=== PATIENT | male | born 1975 | race Two or more races ===

== ENCOUNTER 2022-03-21 19:11 | Emergency (ER) | payer BC, OTHER ==
[~2022-03-21] VITALS: Ht 170.2 cm; Wt 83.5 kg
[2022-03-21] MEDS ORDERED: MORPHINE SULFATE INJ 4 MG/ML DISP.SYRIN ONE ×3 (19:36→20:33)
[2022-03-21] MEDS ORDERED: ONDANSETRON HCL/PF 4 MG/2 ML VIAL ONE (19:36)
[2022-03-21] MEDS ORDERED: KETOROLAC TROMETHAMINE 15 MG/ML VIAL ONE ×2 (19:42→21:15)
--- NOTE | 2022-03-21 19:45 | NUR ---
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 AMBULATORY, PLACED IN BED, AAOX4, IN PAIN 12/21. MD AT BED FOR EVAL.
--- NOTE | 2022-03-21 19:46 | NUR ---
URINE SAMPLE SENT TO LAB
--- NOTE | 2022-03-21 19:50 | NUR ---
BLOOD DRAWN AND SENT TO LAB
[2022-03-21] MEDS ORDERED: KETOROLAC TROMETHAMINE INJ 30 MG/ML VIAL IV ONE ×2 (20:00→21:30)
[2022-03-21] MEDS ORDERED: ONDANSETRON HCL/PF 4 MG/2 ML VIAL IVP ONE (20:00)
[2022-03-21] MEDS ORDERED: MORPHINE SULFATE INJ 2 MG/ML DISP.SYRIN IV ONE ×3 (20:00→20:30)
[2022-03-21] MEDS ORDERED: IV NS 0.9% 1,000 ML BAG IV ONE ×2 (20:00→21:00)
[2022-03-21 20:05] LABS: CALCIUM, SERUM 9.2 mg/dL (8.5-10.1); CREATININE 1.2 mg/dL (0.6-1.3); POTASSIUM 3.5 mmol/L (3.5-5.1)
[2022-03-21 20:09] LABS: BILIRUBIN,URINE NEGATIVE (NEGATIVE); COLOR,URINE YELLOW (YELLOW); LEUKOCYTE ESTERASE ,URINE NEGATIVE (NEGATIVE); NITRITE, URINE NEGATIVE (NEGATIVE); PROTEIN,URINE NEGATIVE (NEGATIVE); UGLUCOSE NEGATIVE (NEGATIVE); UROBILINOGEN,URINE 0.2 EU/dL (0.2)
[2022-03-21 20:10] LABS: ALBUMIN 4.2 g/dL (3.4-5.0); BILIRUBIN,DIRECT 0.1 mg/dL (0.0-0.2); BILIRUBIN,TOTAL 0.3 mg/dL (0.2-1.0); TOTAL PROTEIN, SERUM 7.5 g/dL (6.4-8.2)
[2022-03-21 20:16] LABS: BASOPHILS % (AUTO) 0.3 % (0.0-2.0); HEMATOCRIT 46 % (39-51); HEMOGLOBIN 15.7 g/dL (13.5-17.5); LYMPHOCYTES # (AUTO) 3.6 K/uL (0.8-4.8); LYMPHOCYTES % (AUTO) 30.7 % (20.0-44.0); MEAN CORPUSCULAR HGB CONC 34 g/dl (31.0-36.0); MEAN CORPUSCULAR VOLUME 90 fL (80-96); MONOCYTES # (AUTO) 1.1 K/uL (0.1-1.30); MONOCYTES % (AUTO) 8.9 % (2.0-12.0); NEUTROPHILS % (AUTO) 59.1 % (43.0-81.0); PLATELET COUNT (AUTO) 287 K/uL (150-450); RED BLOOD CELL COUNT(AUTO) 5.17 MIL/uL (4.5-6.0); WHITE BLOOD COUNT (AUTO) 11.8 K/uL (4.3-11.0)
[2022-03-21 20:49] LABS: BACTERIA,URINE None seen /HPF (None Seen); RBC,URINE 51-80 /HPF (0-2); SQUAMOUS EPITHELIAL CELL,UR 0-2 /HPF (None Seen); WBC,URINE 0-2 /HPF (0-3)
[2022-03-21] MEDS ORDERED: TAMSULOSIN 0.4 MG CAP.SR.24H PO ONE (21:00)
[2022-03-21] MEDS ORDERED: TAMSULOSIN 0.4 MG CAP.SR.24H ONE (21:10)
[2022-03-21] MEDS ORDERED: HYDROMORPHONE 1 MG/1 ML DISP.SYRIN ONE (21:50)
[2022-03-21] MEDS ORDERED: HYDROMORPHONE MDV 1 MG in IV D5W 50 ML IV PRN (22:00)
[2022-03-21] MEDS ORDERED: TAMS-12 PO (22:19)
[2022-03-21] MEDS ORDERED: ONDA4TAB11 PO (22:19)
[2022-03-21] MEDS ORDERED: HYDR-3980 PO (22:57)
--- NOTE | 2022-03-21 23:20 | NUR ---
IV removed. Catheter intact and site benign. Pressure and 4x4 applied to site. No bleeding noted.Patient discharged to home in stable condition. Written and verbal after care instructions given. Patient verbalizes understanding of instruction.
[2022-03-21 23:27] VITALS: BP 135/85
== END 2022-03-21 23:20 | disposition home or self-care (01) ==
LOC: ER 19:14
DX: N20.1 Calculus of ureter (principal); R10.9 Unspecified abdominal pain; Z87.442 Personal history of urinary calculi; Z88.0 Allergy status to penicillin; Z79.899 Other long term (current) drug therapy
CPT/HCPCS: 99284; 74176; 96365; 96375; 96361; 96376; 85025; 80048; 83690; 80076; 81001; 36415; J1170 ×2; J2270 ×3; J2405; J7060 ×2; J1885 ×2

== ENCOUNTER 2022-03-22 05:27 | Inpatient (IN) | payer BC ==
[~2022-03-22] VITALS: Ht 170.2 cm; Wt 83.5 kg
[~2022-03-22 05:27] MED LIST: HYDR-3980 PO; ONDA4TAB11 PO; TAMS-12 PO
--- NOTE | 2022-03-22 06:10 | NUR ---
TO ER BED 11. BIBS C/O L FLANK PAIN X 1 DAY. PT IS ALERT AND ORIENTED. RR EVEN AND NON LABORED. CONNECTED TO POX AND HEART MONITOR.
[2022-03-22] MEDS ORDERED: KETOROLAC TROMETHAMINE INJ 30 MG/ML VIAL ONE ×3 (06:15→18:28)
[2022-03-22] MEDS ORDERED: MORPHINE SULFATE INJ 4 MG/ML DISP.SYRIN ONE ×2 (06:15→07:30)
[2022-03-22] MEDS ORDERED: ONDANSETRON HCL/PF 4 MG/2 ML VIAL ONE (06:15)
[2022-03-22] MEDS ORDERED: ONDANSETRON HCL/PF - ER 4 MG/2 ML VIAL IV ONE (06:30)
[2022-03-22] MEDS ORDERED: MORPHINE SULFATE INJ 2 MG/ML DISP.SYRIN IV ONE ×2 (06:30→07:30)
[2022-03-22] MEDS ORDERED: IV NS 0.9% 1,000 ML IV ONE ×2 (06:30→08:00)
[2022-03-22] MEDS ORDERED: KETOROLAC TROMETHAMINE INJ 30 MG/ML VIAL IV ONE ×2 (06:30→07:30)
--- NOTE | 2022-03-22 06:31 | NUR ---
IV LINE ESTABLISHED, RAC20G
--- NOTE | 2022-03-22 08:09 | NUR ---
MORPHINE, TORADOL, AND NS IV GIVEN INDICATED, [place]. IVF INFUSING. PT NOT IN ACUTE DISTRESS, ALERT AND VERBALLY RESPONSIVE.
--- NOTE | 2022-03-22 08:35 | NUR ---
FACUNDO [phone] PICKED UP KEYS FROM PT
--- NOTE | 2022-03-22 09:50 | NUR ---
PT STILL COMPLAINING OF ABD/KIDNEY PAIN; PA AT BEDSIDE, AWARE.
--- NOTE | 2022-03-22 10:10 | NUR ---
COVID SWAB COLLECTED AND SENT TO LAB
--- NOTE | 2022-03-22 10:26 | NUR ---
DR NICOLAS AT BEDSIDE
[2022-03-22] MEDS ORDERED: HYDROMORPHONE 1 MG/1 ML DISP.SYRIN ONE (10:28)
[2022-03-22] MEDS ORDERED: KETOROLAC TROMETHAMINE INJ 30 MG/ML VIAL IV PRN ×3 (10:30→15:00)
[2022-03-22] MEDS ORDERED: HYDROMORPHONE INJ 2 MG/ML DISP.SYRIN IV PRN (10:30)
[2022-03-22] MEDS ORDERED: ONDANSETRON HCL/PF 4 MG/2 ML VIAL IVP PRN (10:30)
[2022-03-22] MEDS ORDERED: ENOXAPARIN SODIUM 40 MG/0.4 ML DISP.SYRIN SQ SCH (10:30)
[2022-03-22] MEDS ORDERED: PANTOPRAZOLE 40 MG VIAL IV SCH (10:30)
[2022-03-22] MEDS ORDERED: IV NS 0.9% 1,000 ML IV PRN (10:30)
[2022-03-22] MEDS ORDERED: ACETAMINOPHEN 325 MG TABLET PO PRN (10:30)
[2022-03-22] MEDS ORDERED: HYDROMORPHONE 1 MG/1 ML DISP.SYRIN IV ONE (10:30)
[2022-03-22 10:53] LABS: BASOPHILS % (AUTO) 0.3 % (0.0-2.0); EOSINOPHILS % (AUTO) 0.8 % (0.0-6.0); HEMATOCRIT 43 % (39-51); HEMOGLOBIN 14.3 g/dL (13.5-17.5); LYMPHOCYTES # (AUTO) 2.3 K/uL (0.8-4.8); LYMPHOCYTES % (AUTO) 18.1 % (20.0-44.0); MEAN CORPUSCULAR HGB CONC 34 g/dl (31.0-36.0); MEAN CORPUSCULAR VOLUME 91 fL (80-96); MONOCYTES # (AUTO) 1.1 K/uL (0.1-1.30); MONOCYTES % (AUTO) 8.9 % (2.0-12.0); NEUTROPHILS % (AUTO) 71.9 % (43.0-81.0); PLATELET COUNT (AUTO) 204 K/uL (150-450); WHITE BLOOD COUNT (AUTO) 12.5 K/uL (4.3-11.0)
[2022-03-22 11:04] LABS: CALCIUM, SERUM 7.8 mg/dL (8.5-10.1); CREATININE 1.3 mg/dL (0.6-1.3)
[2022-03-22] MEDS ORDERED: HYDROMORPHONE INJ 2 MG/ML DISP.SYRIN ONE (15:25)
--- NOTE | 2022-03-22 18:41 | NUR ---
BED 316-1 AVAILABLE AT 1932
--- NOTE | 2022-03-22 20:09 | NUR ---
Patient does not wish to proceed with medical care recommended by . Patient given information related to possible complications, up to and including , which could occur as a result of leaving the hospital at this time. Patient verbalizes understanding of risks involved due to leaving against medical advice. Patient has signed AMA form.IV removed. Catheter intact and site benign. Pressure and 4x4 applied to site. No bleeding noted.
[2022-03-22 20:24] VITALS: BP 120/82
== END 2022-03-22 20:09 | disposition left against medical advice (07) | DRG 694 ==
LOC: ER 05:28 → TRANSITION 14:39 → MED 20:11 → TRANSITION 20:11
PROVIDERS: ADMIT Nurse Practitioner Acute Care; ATTEND Nurse Practitioner Acute Care
DX: N20.2 Calculus of kidney with calculus of ureter (principal); R65.10 Systemic inflammatory response syndrome (SIRS) of non-infectious origin without acute organ dysfunction; D68.59 Other primary thrombophilia; Z88.0 Allergy status to penicillin; Z20.822 Contact with and (suspected) exposure to COVID-19; Z79.899 Other long term (current) drug therapy; N13.9 Obstructive and reflux uropathy, unspecified; E66.9 Obesity, unspecified; Z68.28 Body mass index [BMI] 28.0-28.9, adult; Z87.442 Personal history of urinary calculi
CPT/HCPCS: 36415; 80048-TC; 85025-TC; 87081-TC; C9113; C9803; G0378; J1170; J1650; J1885; J2270; J2405; J7030